=== PATIENT | female | born 1975 | race American Indian/Alaskan Native ===

== ENCOUNTER 2019-07-21 19:18 | Emergency (ER) | payer SELFPAY ==
[2019-07-21 22:23] LABS: Bacteria,Urine 1+ /HPF (Negative); Bilirubin,Urine NEG (Negative); Blood,Urine SM (Negative); Color,Urine Yellow (Yellow); Mucus,Urine 3+ /HPF; Urobilinogen,Urine < 2.0 mg/dL (<2.0)
[2019-07-21 22:30] LABS: Amphetamine Screen,Urine PRESUMPTIVE NEGATIVE; Benzodiazepines Screen,Urine PRESUMPTIVE NEGATIVE; Cannabinoid Screen,Urine PRESUMPTIVE NEGATIVE; Cocaine Screen,Urine PRESUMPTIVE NEGATIVE; Methadone Screen,Urine PRESUMPTIVE NEGATIVE; Opiate Screen,Urine PRESUMPTIVE NEGATIVE
--- NOTE | 2019-07-21 22:44 | Emergency Department Report ---
ED General Adult HPI - General Chief complaint: Psych Stated complaint: SYED EVLOTTIE Time Seen by Provider: 07/21/19 20:34 Source: family Mode of arrival: Stretcher Limitations: Altered Mental Status - History of Present Illness Initial comments: Patient presents to the emergency department the chief complaint of delusions. The patient states to delusions are instructing her to do something but she would not tell me what they are telling her. Patient has a history of a pituitary mass that was diagnosed in 2013. Per the family the patient was scheduled for MRI today but became aggressive with staff and was not able to get it completed -: unknown Severity scale (0 -10): 0 Consistency: constant Improves with: none Worsens with: none Associated Symptoms: denies other symptoms Treatments Prior to Arrival: none - Related Data Home Medications Medication Instructions Recorded Confirmed Last Taken Lisinopril/Hydrochlorothiazide 1 tab PO QDAY 05/07/13 09/07/13 07/03/13 [Zestoretic 10-12.5 mg] Previous Rx's Medication Instructions Recorded Last Taken Type Lisinopril/Hydrochlorothiazide 1 tab PO QDAY #30 tablet 09/07/13 Unknown Rx [Zestoretic 10-12.5 mg] Allergies Allergy/AdvReac Type Severity Reaction Status Date / Time No Known Allergies Allergy Unverified 05/07/13 08:11 ED Review of Systems ROS: Stated complaint: SYED EVLOTTIE Other details as noted in HPI Comment: All other systems reviewed and negative Constitutional: denies: chills, fever Eyes: denies: eye pain, eye discharge, vision change ENT: denies: ear pain, throat pain Respiratory: denies: cough, shortness of breath, wheezing Cardiovascular: denies: chest pain, palpitations Endocrine: no symptoms reported Gastrointestinal: denies: abdominal pain, nausea, diarrhea Genitourinary: denies: urgency, dysuria, discharge Musculoskeletal: denies: back pain, joint swelling, arthralgia Skin: denies: rash, lesions Neurological: denies: headache, weakness, paresthesias Psychiatric: auditory hallucinations. denies: anxiety, depression, visual hallucinations, homicidal thoughts, suicidal thoughts Hematological/Lymphatic: denies: easy bleeding, easy bruising ED Past Medical Hx - Past Medical History Previous Medical History?: Yes Hx Hypertension: Yes Hx Diabetes: Yes Hx Asthma: Yes Additional medical history: Obesity, anemia, troy's disease, multiple sclerosis, pituitary adenoma (2016), sleep apnea, hypothyroidism, hyperlipidemia - Surgical History Past Surgical History?: Yes Additional Surgical History: LEEP. cryo surg 2007, brain surgery 2018 - Social History Smoking Status: Never Smoker Substance Use Type: Prescribed - Medications Home Medications: Home Medications Medication Instructions Recorded Confirmed Last Taken Type Lisinopril/Hydrochlorothiazide 1 tab PO QDAY 05/07/13 09/07/13 07/03/13 History [Zestoretic 10-12.5 mg] Lisinopril/Hydrochlorothiazide 1 tab PO QDAY #30 tablet 09/07/13 Unknown Rx [Zestoretic 10-12.5 mg] ED Physical Exam - General Limitations: Altered Mental Status General appearance: alert, in no apparent distress - Head Head exam: Present: atraumatic, normocephalic - Eye Eye exam: Present: normal appearance, PERRL, EOMI - ENT ENT exam: Present: mucous membranes moist - Neck Neck exam: Present: normal inspection - Respiratory Respiratory exam: Present: normal lung sounds bilaterally. Absent: respiratory distress - Cardiovascular Cardiovascular Exam: Present: regular rate, normal rhythm. Absent: systolic murmur, diastolic murmur, rubs, gallop - GI/Abdominal GI/Abdominal exam: Present: soft, normal bowel sounds. Absent: distended, tenderness - Extremities Exam Extremities exam: Present: normal inspection - Back Exam Back exam: Present: normal inspection - Neurological Exam Neurological exam: Present: alert, oriented X3, CN II-XII intact. Absent: motor sensory deficit - Psychiatric Psychiatric exam: Present: normal mood, other (flat affect) - Skin Skin exam: Present: warm, dry, intact, normal color. Absent: rash ED Course Vital Signs 07/21/19 20:49 Temperature 98.1 F Pulse Rate 104 H Respiratory 18 Rate Blood Pressure 158/92 [Right] O2 Sat by Pulse 96 Oximetry ED Medical Decision Making - Lab Data Result diagrams: 07/22/19 00:00 07/22/19 00:00 Lab Results 07/21/19 07/21/19 07/22/19 Range/Units Unknown Unknown 00:00 WBC (4.5-11.0) K/mm3 RBC (3.65-5.03) M/mm3 Hgb (10.1-14.3) gm/dl Hct (30.3-42.9) % MCV (79-97) fl MCH (28-32) pg MCHC (30-34) % RDW (13.2-15.2) % Plt Count (140-440) K/mm3 Sodium (137-145) mmol/L Potassium (3.6-5.0) mmol/L Chloride (98-107) mmol/L Carbon Dioxide (22-30) mmol/L Anion Gap mmol/L BUN (7-17) mg/dL Creatinine (0.7-1.2) mg/dL Estimated GFR ml/min BUN/Creatinine Ratio % Glucose (65-100) mg/dL Calcium (8.4-10.2) mg/dL Urine Color Yellow (Yellow) Urine Turbidity Slightly-cloudy (Clear) Urine pH 6.0 (5.0-7.0) Ur Specific [place] 1.032 H (1.003-1.030) Urine Protein 30 mg/dl (Negative) mg/dL Urine Glucose (UA) >=500 (Negative) mg/dL Urine Ketones Tr (Negative) mg/dL Urine Blood Sm (Negative) Urine Nitrite Neg (Negative) Urine Bilirubin Neg (Negative) Urine Urobilinogen < 2.0 (<2.0) mg/dL Ur Leukocyte Esterase Sm (Negative) Urine WBC (Auto) 50.0 H (0.0-6.0) /HPF Urine RBC (Auto) 12.0 (0.0-6.0) /HPF U Epithel Cells (Auto) 14.0 H (0-13.0) /HPF Urine Bacteria (Auto) 1+ (Negative) /HPF Urine Mucus 3+ /HPF Salicylates < 0.3 L (2.8-20.0) mg/dL Urine Opiates Screen Presumptive negative Urine Methadone Screen Presumptive negative Acetaminophen (10.0-30.0) ug/mL Ur Barbiturates Screen Presumptive negative Ur Phencyclidine Scrn Presumptive negative Ur Amphetamines Screen Presumptive negative U Benzodiazepines Scrn Presumptive negative Urine Cocaine Screen Presumptive negative U Marijuana (THC) Screen Presumptive negative Drugs of Abuse Note Disclamer Plasma/Serum Alcohol (0-0.07) % 07/22/19 07/22/19 07/22/19 Range/Units 00:00 00:00 00:00 WBC (4.5-11.0) K/mm3 RBC (3.65-5.03) M/mm3 Hgb (10.1-14.3) gm/dl Hct (30.3-42.9) % MCV (79-97) fl MCH (28-32) pg MCHC (30-34) % RDW (13.2-15.2) % Plt Count (140-440) K/mm3 Sodium 145 (137-145) mmol/L Potassium 4.4 (3.6-5.0) mmol/L Chloride 105.5 (98-107) mmol/L Carbon Dioxide 27 (22-30) mmol/L Anion Gap 17 mmol/L BUN 15 (7-17) mg/dL Creatinine 0.7 (0.7-1.2) mg/dL Estimated GFR > 60 ml/min BUN/Creatinine Ratio 21 % Glucose 210 H (65-100) mg/dL Calcium 9.5 (8.4-10.2) mg/dL Urine Color (Yellow) Urine Turbidity (Clear) Urine pH (5.0-7.0) Ur Specific [place] (1.003-1.030) Urine Protein (Negative) mg/dL Urine Glucose (UA) (Negative) mg/dL Urine Ketones (Negative) mg/dL Urine Blood (Negative) Urine Nitrite (Negative) Urine Bilirubin (Negative) Urine Urobilinogen (<2.0) mg/dL Ur Leukocyte Esterase (Negative) Urine WBC (Auto) (0.0-6.0) /HPF Urine RBC (Auto) (0.0-6.0) /HPF U Epithel Cells (Auto) (0-13.0) /HPF Urine Bacteria (Auto) (Negative) /HPF Urine Mucus /HPF Salicylates (2.8-20.0) mg/dL Urine Opiates Screen Urine Methadone Screen Acetaminophen < 5.0 L (10.0-30.0) ug/mL Ur Barbiturates Screen Ur Phencyclidine Scrn Ur Amphetamines Screen U Benzodiazepines Scrn Urine Cocaine Screen U Marijuana (THC) Screen Drugs of Abuse Note Plasma/Serum Alcohol < 0.01 (0-0.07) % 07/22/19 Range/Units 00:00 WBC 17.5 H (4.5-11.0) K/mm3 RBC 4.89 (3.65-5.03) M/mm3 Hgb 13.0 (10.1-14.3) gm/dl Hct 41.0 (30.3-42.9) % MCV 84 (79-97) fl MCH 27 L (28-32) pg MCHC 32 (30-34) % RDW 14.2 (13.2-15.2) % Plt Count 341 (140-440) K/mm3 Sodium (137-145) mmol/L Potassium (3.6-5.0) mmol/L Chloride (98-107) mmol/L Carbon Dioxide (22-30) mmol/L Anion Gap mmol/L BUN (7-17) mg/dL Creatinine (0.7-1.2) mg/dL Estimated GFR ml/min BUN/Creatinine Ratio % Glucose (65-100) mg/dL Calcium (8.4-10.2) mg/dL Urine Color (Yellow) Urine Turbidity (Clear) Urine pH (5.0-7.0) Ur Specific [place] (1.003-1.030) Urine Protein (Negative) mg/dL Urine Glucose (UA) (Negative) mg/dL Urine Ketones (Negative) mg/dL Urine Blood (Negative) Urine Nitrite (Negative) Urine Bilirubin (Negative) Urine Urobilinogen (<2.0) mg/dL Ur Leukocyte Esterase (Negative) Urine WBC (Auto) (0.0-6.0) /HPF Urine RBC (Auto) (0.0-6.0) /HPF U Epithel Cells (Auto) (0-13.0) /HPF Urine Bacteria (Auto) (Negative) /HPF Urine Mucus /HPF Salicylates (2.8-20.0) mg/dL Urine Opiates Screen Urine Methadone Screen Acetaminophen (10.0-30.0) ug/mL Ur Barbiturates Screen Ur Phencyclidine Scrn Ur Amphetamines Screen U Benzodiazepines Scrn Urine Cocaine Screen U Marijuana (THC) Screen Drugs of Abuse Note Plasma/Serum Alcohol (0-0.07) % - Medical Decision Making Medically cleared Abx given for UTI Awaiting mental health assessment and placement Critical care attestation.: If time is entered above; I have spent that time in minutes in the direct care of this critically ill patient, excluding procedure time. ED Disposition Clinical Impression: Delusions, UTI (urinary tract infection) Disposition: [id number]/TX-65 PSY HOSP/PSY UNIT Is pt being admited?: No Does the pt Need Aspirin: No Condition: Stable
[2019-07-22 00:16] LABS: Mean Corpuscular HGB Conc 32 % (30-34); Mean Corpuscular Volume 84 fl (79-97); Platelet Count 341 K/mm3 (140-440); Red Blood Count 4.89 M/mm3 (3.65-5.03); Red Cell Distribution Width 14.2 % (13.2-15.2)
[2019-07-22 00:49] LABS: BUN/Creatinine Ratio 21; Blood Urea Nitrogen 15 mg/dL (7-17); Calcium 9.5 mg/dL (8.4-10.2); Hemolysis Index 8
[2019-07-22] MEDS: SULFAMETHOXAZOLE/TRIMETHOPRIM 800/160MG DS TAB PO SCH ×2 (01:42→10:00)
[2019-07-22] MEDS ORDERED: LORazepam 2 MG/ML VIAL ONE (04:29)
[2019-07-22] MEDS ORDERED: ZIPRASIDONE MESYLATE 20 MG VIAL IM ONE ×2 (04:29→04:30)
[2019-07-22] MEDS ORDERED: diphenhydrAMINE 50 MG/ML VIAL ONE (04:29)
[2019-07-22] MEDS ORDERED: LORazepam 2 MG/ML VIAL IM ONE (04:40)
[2019-07-22 05:04] LABS: Basophils % (Manual) 0 % (0.0-1.8); Eosinophils % (Manual) 0 % (0.0-4.3); Platelet Estimate Consistent w Auto; Total Cells Counted 100
[2019-07-22 07:49] VITALS: BP 138/80
--- NOTE | 2019-07-22 13:22 | Consultation ---
History of Present Illness - Reason for Consult Consult date: 07/22/19 Reason for consult: manage mental health - Chief Complaint Chief complaint: obsessions, hallucinations - History of Present Psychiatric Illness Liset Miller is a 44y/o female patient who says she came to the ER because she was "fixated on money." She is awake and sitting on side of cot. She is a/o x 4. She is pleasant, calm and cooperative. She makes good eye contact. She is a good historian. She is dressed appropriately. Poor hygiene. They patient says "I was fixated on money and I don't know why." She says but "I'm a lot better now." She says she "was seeing money in her hand that she didn't have." She also says she told her daughter and sister she "had money in the safe under the bed." Ms. Aguayo says she started noticing a change when she "had an infusion for MS right before Azul." She says, "Ma'am listen, I've never had any psychiatric problems or anything prior to this. I see what happened." The patient says she had an incident last night. She says "I became so upset because they left me for 8 hours unattended." She says "no one came to take my vitals or anything. Not even allow me to go to the bathroom." She says "I got so mad I flipped out and urinated on the floor." She says "I apologize. I know I messed up." She denies any psych history in the past or every being on any psych medications. When asked the patient was her primary given her any medications for psychiatric problems, she replied, "none of that." She denies elicit drugs, alcohol use or nicotine use. She jokes, and says, "I tried to be an alcoholic once. It didn't work." She says she has a "strong support system. My daughter, mom and dad, sister, my brothers." She denies any SI/HI or attempts now or in the past. She also denies any hallucinations at this time. Mrs Miller states, "I have been compliant every since they brought me to this room. Ask them." As I was ending the interview, the patient states, "Ms. Emerson I know it's up to you, but I'd like to go home. I'm fine." PAST PSYCHIATRIC HISTORY: Diagnoses: Denies Suicide attempts or Self-harm behavior: denies Prior psychiatric hospitalizations:denies Substance Abuse history: denies Previous psychiatric medications tried: Denies Outpatient treatment: no REVIEW OF SYSTEMS Constitutional: Negative for weight loss ENT: Negative for stridor Respiratory: denies cough All other systems reviewed and are negative except respiratory PAST MEDICAL HISTORY: MS, [place], hypothyroidism, HTN, High Cholesterol Family Psychiatric History None reported or documented SOCIAL HISTORY Marital Status: Single Living Arrangements: Daughter and friend Employment Status: Employed Access to guns/weapons: Denies Education: [employer] History of Abuse: Denies Legal History: Denies MSE Appearance: Awake, Sitting in on cot. Good eye contact. Poor hygiene Behavior: Pleasant, calm and cooperative Mood: "I'm fine" Affect: consisted with mood Thought Process: Goal directed Speech: Normal tone and pace Thought Content Harmfulness Denies SI/HI Hallucinations: patient denies Delusions: none elicited Consciousness: Alert Cognition/Memory: Good Insight/Judgment: Good Assessment: Bipolar Disorder w/Psychotic Features Treatment Plan D/C 1013 Risperidone 0.25mg po BID Medical: Per primary team Disposition: The patient does not meet requirement for acute inpatient psychiatric hospitalization. May discharge home once medically clear. The patient is to establish an outpatient psychiatrist. Follow up with psychiatrist or PCP in 7 to 10 days The patient was explained the medications, benefits and side effects, and the treatment plan. She verbalizes understanding and agreement of treatment plan. Please call with any questions or concerns. Thank you for this consult. Medications and Allergies Allergies Allergy/AdvReac Type Severity Reaction Status Date / Time No Known Allergies Allergy Unverified 05/07/13 08:11 Home Medications Medication Instructions Recorded Confirmed Last Taken Type Lisinopril/Hydrochlorothiazide 1 tab PO QDAY 05/07/13 09/07/13 07/03/13 History [Zestoretic 10-12.5 mg] Lisinopril/Hydrochlorothiazide 1 tab PO QDAY #30 tablet 09/07/13 Unknown Rx [Zestoretic 10-12.5 mg] risperiDONE [RisperDAL] 0.25 mg PO BID #60 tab 07/22/19 Unknown Rx Active Meds: Active Medications Trimethoprim/Sulfamethoxazole (Bactrim Ds) 1 each PO Q12HR SHERRY Last Admin: 07/22/19 10:00 Dose: 1 each Documented by: Mental Status Exam - Vital signs Last Vital Signs Temp 98.5 F 07/22/19 07:47 Pulse 97 H 07/22/19 07:47 Resp 18 07/22/19 07:47 BP 138/80 07/22/19 07:47 Pulse Ox 96 07/22/19 07:47 Results Result Diagrams: 07/22/19 00:00 07/22/19 00:00 Abnormal lab results 07/21/19 07/22/19 07/22/19 Range/Units Unknown 00:00 00:00 WBC (4.5-11.0) K/mm3 MCH (28-32) pg Seg Neuts % (Manual) (40.0-70.0) % Monocytes % (Manual) (0.0-7.3) % Seg Neutrophils # Man (1.8-7.7) K/mm3 Monocytes # (Manual) (0.0-0.8) K/mm3 Glucose (65-100) mg/dL POC Glucose (70-105) Ur Specific [place] 1.032 H (1.003-1.030) Urine WBC (Auto) 50.0 H (0.0-6.0) /HPF U Epithel Cells (Auto) 14.0 H (0-13.0) /HPF Salicylates < 0.3 L (2.8-20.0) mg/dL Acetaminophen < 5.0 L (10.0-30.0) ug/mL 07/22/19 07/22/19 07/22/19 Range/Units 00:00 00:00 07:38 WBC 17.5 H (4.5-11.0) K/mm3 MCH 27 L (28-32) pg Seg Neuts % (Manual) 75.0 H (40.0-70.0) % Monocytes % (Manual) 10.0 H (0.0-7.3) % Seg Neutrophils # Man 13.1 H (1.8-7.7) K/mm3 Monocytes # (Manual) 1.8 H (0.0-0.8) K/mm3 Glucose 210 H (65-100) mg/dL POC Glucose 230 H (70-105) Ur Specific [place] (1.003-1.030) Urine WBC (Auto) (0.0-6.0) /HPF U Epithel Cells (Auto) (0-13.0) /HPF Salicylates (2.8-20.0) mg/dL Acetaminophen (10.0-30.0) ug/mL All other labs normal.
== END 2019-07-22 14:48 ==
LOC: EEVIPCON 19:18 → ED 19:18
DX: F22 Delusional disorders (principal); N39.0 Urinary tract infection, site not specified; I10 Essential (primary) hypertension; E11.9 Type 2 diabetes mellitus without complications; J45.909 Unspecified asthma, uncomplicated; E66.9 Obesity, unspecified; E03.9 Hypothyroidism, unspecified; E78.5 Hyperlipidemia, unspecified
CPT/HCPCS: 36415; 80048; 80307; 81001; 82962; 85007; 85025; 87086; 96372; 99284; J2060; J3486; 80320; G0480; J1200